=== PATIENT | female | born 2000 ===

== ENCOUNTER 2020-04-23 07:00 | Outpatient (CLI) | payer BC ==
[2020-04-23 17:01] LABS: BHCG - Serum Negative (NEGATIVE)
[2020-04-23 17:02] LABS: Pregs Control Background? CLEAR/WHITE (CLR/WHITE); Pregs Control Bar Appear? YES (CONTROL BAR)
[2020-04-24 04:03] LABS: SARS-CoV-2 PCR by NAA Not Detected (NotDetected)
== END 2020-04-23 23:00 | disposition home or self-care (01) ==
LOC: CSHLAB 07:00
PROVIDERS: ATTEND Internal Medicine Gastroenterology
DX: Z01.812 Encounter for preprocedural laboratory examination (principal); Z20.822 Contact with and (suspected) exposure to COVID-19; R10.9 Unspecified abdominal pain
CPT/HCPCS: 84703; 87635; U0003; U0005